=== PATIENT | male | born 1990 | race Two or more races ===

== ENCOUNTER 2018-12-10 02:16 | Emergency (ER) | payer BC, OTHER ==
[~2018-12-10] VITALS: Ht 180.3 cm; Wt 129.3 kg
[2018-12-10 02:29] VITALS: BP 153/92
[2018-12-10] MEDS ORDERED: IPRATROPIUM BROM 0.5 MG/2.5ML INH SOL NEB ONE (02:30)
[2018-12-10] MEDS ORDERED: ALBUTEROL SULF 2.5 MG/0.5ML(0.5%) NEB SOLN NEB ONE (02:30)
== END 2018-12-10 03:19 | disposition left against medical advice (07) ==
LOC: ER 02:16
DX: R06.02 Shortness of breath (principal); R07.89 Other chest pain; Z53.21 Procedure and treatment not carried out due to patient leaving prior to being seen by health care provider
CPT/HCPCS: 71046; 94640; 99281; J7611; J7644